=== PATIENT | male | born 1990 | race Caucasian/White ===

== ENCOUNTER 2016-09-29 20:59 | Emergency (ER) | payer MEDICAID ==
[~2016-09-29] VITALS: Ht 185.4 cm; Wt 115.7 kg
[2016-09-29] MEDS ORDERED: HYDROXYZINE PAM25 MG PO (21:07)
[2016-09-29] MEDS ORDERED: CLONIDINE HCL0.1 M1 PO (21:07)
[2016-09-29] MEDS ORDERED: VITAMIN D50000 I1 PO (21:07)
[2016-09-29] MEDS ORDERED: LITHIUM CARB 1150 MG OR (21:07)
[2016-09-29] MEDS ORDERED: MIRTAZAPINE45 MG PO (21:08)
[2016-09-29] MEDS ORDERED: PANTOPRAZOLE SO40 M1 PO (21:08)
[2016-09-29] MEDS ORDERED: PAIN & FEVER325 MG PO (21:08)
[2016-09-29] MEDS ORDERED: LAMOTRIGINE150 MG PO (21:08)
[2016-09-29] MEDS ORDERED: QUETIAPINE FUM200 M2 PO (21:09)
[2016-09-29] MEDS ORDERED: QUETIAPINE FUM150 MG PO (21:09)
[2016-09-29] MEDS ORDERED: ZIPRASIDONE HCL80 MG PO (21:09)
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
[2016-09-29 22:42] VITALS: BP 150/79
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
== END 2016-09-29 22:42 | disposition home or self-care (01) ==
LOC: ER 20:59
PROC: 0HQ0XZZ Repair Scalp Skin, External Approach (ICD-10-PCS; principal; 2016-09-29)
DX: S01.01XA Laceration without foreign body of scalp, initial encounter (principal); Y04.0XXA Assault by unarmed brawl or fight, initial encounter; Y92.199 Unspecified place in other specified residential institution as the place of occurrence of the external cause